=== PATIENT | female | born 1965 | race Caucasian/White ===

== ENCOUNTER 2024-05-03 08:28 | Emergency (ER) | payer BC, OTHER ==
[~2024-05-03] VITALS: Ht 160 cm; Wt 62.6 kg
[2024-05-03] MEDS ORDERED: METOPROLOL TARTRATE 50 MG TABLET ONE (08:57)
[2024-05-03] MEDS ORDERED: METOPROLOL SUCCINATE XL 25 MG TAB.SR.24H PO ONE (08:57)
[2024-05-03] MEDS: METOPROLOL TARTRATE 50 MG TABLET PO ONE (08:59)
[2024-05-03] MEDS: METOPROLOL SUCCINATE XL 25 MG TAB.SR.24H PO ONE (08:59)
[2024-05-03 09:21] LABS: BASOPHILS # (AUTO) 0.1 K/UL (0.0-0.2); EOSINOPHILS # (AUTO) 0.1 K/uL (0.0-0.7); EOSINOPHILS % (AUTO) 1.1 % (0.0-7.0); HEMATOCRIT 43.4 % (31.2-41.9); HEMOGLOBIN 14.1 g/dL (10.9-14.3); LYMPHOCYTES # (AUTO) 2.5 K/uL (0.8-4.8); LYMPHOCYTES % (AUTO) 33.3 % (20.5-51.5); MEAN CORPUSCULAR HEMOGLOBIN 27.4 uug (24.7-32.8); MEAN CORPUSCULAR HGB CONC 33 g/dL (32.3-35.6); MEAN CORPUSCULAR VOLUME 83.8 fL (75.5-95.3); MONOCYTES # (AUTO) 0.4 K/uL (0.1-1.30); NEUTROPHILS # (AUTO) 4.4 K/uL (1.8-8.9); NEUTROPHILS % (AUTO) 58.6 % (38.5-71.5); PLATELET COUNT (AUTO) 276 K/uL (179-408); RED BLOOD CELL COUNT(AUTO) 5.17 MIL/uL (3.63-4.92); RED CELL DISTRIBUTION WIDTH 13.4 % (12.3-17.7); WHITE BLOOD COUNT (AUTO) 7.4 K/uL (3.8-11.8)
[2024-05-03 09:28] LABS: DIFFERENTIAL COMMENT 1
[2024-05-03 09:31] LABS: CALCIUM 9.7 mg/dL (8.5-10.1); CARBON DIOXIDE 27 mmol/L (21-32); CHLORIDE 108 mmol/L (98-107); CREATININE 0.8 mg/dL (0.6-1.3); GLUCOSE 117 mg/dL (74-106); POTASSIUM 4.3 mmol/L (3.5-5.1); SODIUM SERUM 145 mmol/L (136-145); UREA NITROGEN, BLOOD 15 mg/dL (7-18)
[2024-05-03 09:43] LABS: ALANINE AMINOTRANSFERASE 26 U/L (14-59); ALBUMIN 3.8 g/dL (3.4-5.0); ALKALINE PHOSPHATASE 125 U/L (50-136); ASPARTATE AMINOTRANSFERASE 6 U/L (15-37); BILIRUBIN,DIRECT 0.2 mg/dL (0.0-0.2); BILIRUBIN,TOTAL 0.5 mg/dL (0.2-1.0); NT-PRO BNP 18 pg/mL (0-125); TOTAL PROTEIN, SERUM 7.4 g/dL (6.4-8.2)
[2024-05-03 10:12] VITALS: BP 133/78; TEMP 98; O2SAT 99
[2024-05-03] MEDS ORDERED: METO-357 PO (10:12)
== END 2024-05-03 10:13 | disposition home or self-care (01) ==
LOC: ER 08:28
DX: I10 Essential (primary) hypertension (principal); Z79.899 Other long term (current) drug therapy
CPT/HCPCS: 36415; 84484; 85025; 93005; A4606; A4663

== ENCOUNTER 2024-05-11 08:37 | Emergency (ER) | payer BC ==
[~2024-05-11] VITALS: Ht 160 cm; Wt 62.6 kg
[~2024-05-11 08:37] MED LIST: METO-357 PO
[2024-05-11] MEDS ORDERED: hydrALAZINE HCL 25 MG TABLET ONE (11:00)
[2024-05-11] MEDS ORDERED: CLON0.2T PO (11:02)
[2024-05-11] MEDS: hydrALAZINE HCL 25 MG TABLET PO ONE (11:04)
[2024-05-11 12:01] VITALS: BP 160/100; TEMP 98; O2SAT 99
== END 2024-05-11 12:01 | disposition home or self-care (01) ==
LOC: ER 08:37
DX: I10 Essential (primary) hypertension (principal); Z79.899 Other long term (current) drug therapy
CPT/HCPCS: A4606; A4663